=== PATIENT | female | born 1995 | race Caucasian/White ===

== ENCOUNTER 2022-02-01 12:18 | Day surgery (SDC) | payer OTHER ==
[2022-02-01] MEDS ORDERED: SODIUM CHLORIDE 0.9% 500 ML INFUS.BAG IV ONE (13:39)
[2022-02-01] MEDS ORDERED: KETOROLAC TROMETHAMINE 30 MG/1 ML VIAL IVPUSH ONE (13:39)
[2022-02-01] MEDS ORDERED: KETOROLAC TROMETHAMINE 30 MG/1 ML VIAL ONE ×2 (14:02→19:36)
[2022-02-01 14:16] LABS: BASO % 0.8 % (0-2.0); EOS % 2.1 % (0-4.5); HEMATOCRIT 39.7 % (32.4-45.2); HEMOGLOBIN 13.6 GM/dL (10.7-15.3); LYMPH % 22.4 % (8-40); MCH 30.5 pg (25.7-33.7); MCHC 34.2 g/dl (32.0-36.0); MEAN CELL VOLUME 89.2 fl (80-96); MEAN PLT VOLUME 8.5 fl (7.5-11.1); MONO % 5.5 % (3.8-10.2); NEUT % 69.2 % (42.8-82.8); PLATELET COUNT 423 10^3/uL (134-434); RBC 4.46 M/mm3 (3.60-5.2); RDW 13.8 % (11.6-15.6); WHITE BLOOD COUNT 8.6 K/mm3 (4.0-10.0)
[2022-02-01 14:35] LABS: CALCIUM 9.4 mg/dL (8.5-10.1)
[2022-02-01 14:36] LABS: ALBUMIN 3.5 g/dl (3.4-5.0); BLOOD UREA NITROGEN 10.9 mg/dL (7-18)
[2022-02-01 14:40] LABS: CREATININE 0.9 mg/dL (0.55-1.3)
[2022-02-01 14:41] LABS: BILIRUBIN,TOTAL 0.3 mg/dL (0.2-1); TOT PROT 7.9 g/dl (6.4-8.2)
[2022-02-01 14:44] LABS: URINE APPEARANCE CLEAR; URINE BILIRUBIN NEGATIVE (NEGATIVE); URINE COLOR YELLOW; URINE GLUCOSE (UA) NEGATIVE (NEGATIVE); URINE KETONE NEGATIVE (NEGATIVE); URINE LEUK ESTERASE NEGATIVE (NEGATIVE); URINE NITRITE NEGATIVE (NEGATIVE); URINE PROTEIN NEGATIVE (NEGATIVE); URINE UROBILINOGEN 0.2 mg/dL (0.2-1.0)
[2022-02-01] MEDS ORDERED: PIPERACILLIN/TAZOB 4.5 GM 4.5 GM in DEXTROSE 5%-WATER 100 ML IVPB ONE (16:50)
[2022-02-01] MEDS ORDERED: PIPERACILLIN/TAZOB 3.375 GM 3.375 GM/50 ML BAG IVPB ONE (17:09)
[2022-02-01] MEDS ORDERED: ACETAMINOPHEN 1000 MG/100 ML BAG IVPB PRN ×2 (17:29→19:52)
[2022-02-01] MEDS ORDERED: DEXTROSE 5%-NORMAL SALINE 1,000 ML IV SCH (17:30)
[2022-02-01] MEDS ORDERED: BUPIVACAINE HCL/PF 0.5% (5 MG/ML) 30 ML VIAL IJ ONE (17:30)
[2022-02-01] MEDS ORDERED: CEFTRIAXONE 1 GM in DEXTROSE 5%-WATER - 50 ML IVPB SCH (17:45)
[2022-02-01] MEDS ORDERED: NEOSTIGMINE METHYLSULFATE 0.5 MG/ML - 10 ML MDV ONE (17:55)
[2022-02-01] MEDS ORDERED: GLYCOPYRROLATE 0.2 MG/1 ML VIAL ONE ×2 (17:55→19:36)
[2022-02-01] MEDS ORDERED: ROCURONIUM BROMIDE 50 MG/5 ML SYRINGE ONE (17:55)
[2022-02-01] MEDS ORDERED: MIDAZOLAM HCL 2 MG/2 ML SINGLE DOSE VIAL ONE (17:56)
[2022-02-01] MEDS ORDERED: PROPOFOL 20 ML ONE ×3 (18:17→19:12)
[2022-02-01] MEDS ORDERED: ONDANSETRON 4 MG/2 ML VIAL IVPUSH PRN ×2 (18:23→19:52)
[2022-02-01] MEDS ORDERED: BUPIVACAINE HCL/PF 0.5% (5MG/ML) 10 ML VIAL ONE (19:21)
[2022-02-01] MEDS ORDERED: LIDOCAINE HCL/PF 2% SDV 5ML VIAL ONE (19:36)
[2022-02-01] MEDS ORDERED: DESFLURANE GAS 240 ML BOTTLE IH ONE (19:36)
[2022-02-01] MEDS ORDERED: DEXAMETHASONE SOD PHOSPHATE 4 MG/1 ML VIAL ONE (19:36)
[2022-02-01] MEDS ORDERED: oxyCODONE HCL 5 MG TABLET PO PRN (19:40)
[2022-02-01] MEDS: DEXTROSE 5%-NORMAL SALINE 1,000 ML IV SCH (21:52)
[2022-02-01] MEDS ORDERED: PHENOL 177 ML SPRAY BOTTLE MM PRN (23:12)
[2022-02-01 23:32] VITALS: BMI 30.9
[2022-02-02] MEDS: DEXTROSE 5%-NORMAL SALINE 1,000 ML IV SCH (05:45)
[2022-02-02 06:57] VITALS: TEMP 98.2
[2022-02-02] MEDS ORDERED: BENZOCAINE/MENTH/CETYLPYRD CL 1 EACH LOZENGE MM PRN (09:28)
[2022-02-02] MEDS ORDERED: ENOXAPARIN NA (PORCINE) 40 MG/0.4 ML DISP.SYRIN SQ SCH (10:00)
[2022-02-02 10:40] LABS: BASO % 0.3 % (0-2.0); HEMATOCRIT 36.7 % (32.4-45.2); HEMOGLOBIN 12.6 GM/dL (10.7-15.3); LYMPH % 11.6 % (8-40); MCH 30.6 pg (25.7-33.7); MCHC 34.2 g/dl (32.0-36.0); MEAN CELL VOLUME 89.4 fl (80-96); MONO % 3.9 % (3.8-10.2); NEUT % 84.2 % (42.8-82.8); PLATELET COUNT 407 10^3/uL (134-434); RDW 13.7 % (11.6-15.6); WHITE BLOOD COUNT 7.8 K/mm3 (4.0-10.0)
[2022-02-02 11:11] LABS: ALBUMIN 2.9 g/dl (3.4-5.0); BLOOD UREA NITROGEN 6.4 mg/dL (7-18); CALCIUM 8.6 mg/dL (8.5-10.1)
[2022-02-02 11:12] LABS: BILIRUBIN,TOTAL 0.2 mg/dL (0.2-1); CREATININE 0.8 mg/dL (0.55-1.3)
[2022-02-02 11:13] LABS: TOT PROT 6.5 g/dl (6.4-8.2)
[2022-02-02] MEDS ORDERED: ACETAMINOPHEN 325 MG TABLET (FP) PO PRN (12:38)
[2022-02-02 13:03] VITALS: BP 128/73; PULSE 86
== END 2022-02-02 14:33 | disposition home or self-care (01) ==
LOC: JER 12:18 → JASUSAT 17:00 → UNDOADMIN 17:00 → SUATTDRO 17:00 → JERBED 17:00 → J8W 21:03 → JERBED 21:03 → JASUSAT 02-02 14:33
PROVIDERS: ATTEND Internal Medicine
PROC: 0DTJ4ZZ Resection of Appendix, Percutaneous Endoscopic Approach (ICD-10-PCS; principal; 2022-02-01 18:00)
DX: K35.80 Unspecified acute appendicitis (principal)
CPT/HCPCS: 36415; 74177-TC; 76830-TC; 80053; 81003; 84703; 85025; 87086; 88304-TC; 94760; 99285-25; C9803-CS; U0003; U0005